=== PATIENT | female | born 1965 | race Caucasian/White ===

== ENCOUNTER 2018-09-11 15:22 | Emergency (ER) | payer MEDICAID ==
[~2018-09-11] VITALS: Ht 162.6 cm; Wt 145.1 kg
[~2018-09-11 15:22] MED LIST: LEVO0.124 PO
[2018-09-11 16:20] VITALS: BP 100/68
--- NOTE | 2018-09-11 18:30 | NUR ---
BIB DAUGHTER WITH C/O LT HEEL PAIN X 1 WK. DENIES INJURY. RECENTLY TREATED WITH UTI AT [facility]. PER DAUGHTER CAN NOT REMEMBER THE ANTIBIOTICS THAT SHE IS STILL TAKING. VSS; PATIENT POSITIONED FOR COMFORT; HOB ELEVATED; BEDRAILS UP X2; BED DOWN. ER MD MADE AWARE OF PT STATUS.
[2018-09-11] MEDS ORDERED: HYDROcodone/APAP 5/325 MG 1 TAB TAB PO ONE (18:40)
[2018-09-11 18:50] VITALS: BP 100/68
== END 2018-09-11 18:50 | disposition home or self-care (01) ==
LOC: MED 15:22
DX: S93.692A Other sprain of left foot, initial encounter (principal); M77.52 Other enthesopathy of left foot and ankle; X58.XXXA Exposure to other specified factors, initial encounter; Y93.89 Activity, other specified; Y92.89 Other specified places as the place of occurrence of the external cause; Y99.8 Other external cause status; E07.9 Disorder of thyroid, unspecified; Z79.899 Other long term (current) drug therapy
CPT/HCPCS: 99283

== ENCOUNTER 2019-03-21 18:02 | Emergency (ER) | payer MEDICAID ==
[~2019-03-21] VITALS: Ht 162.6 cm; Wt 146.6 kg
[2019-03-21 18:23] VITALS: BP 137/85
--- NOTE | 2019-03-21 18:33 | NUR ---
53/F BIB DAUGHTER .PT REPORTS DIFFICULTY BREATHING, ANXIETY, AND WEAKNESS SINCE WAKING UP THIS MORNING. RR EVEN, NON-LABORED, BREATH SOUNDS CLEAR THROUGHOUT, O2 SAT AT 96 % ON RA.MEDHX:ANXIETY, HYPOTHYROIDISM.PATIENT POSITIONED FOR COMFORT; HOB ELEVATED; BEDRAILS UP X1; BED DOWN. ER MD MADE AWARE OF PT STATUS.
[2019-03-21] MEDS ORDERED: IPRATROPIUM 0.02% 0.5 MG/2.5 ML NEBU INH ONE (18:35)
[2019-03-21] MEDS ORDERED: methylPREDNISolone SS 125 MG/2 ML VIAL IVP ONE (18:35)
[2019-03-21] MEDS ORDERED: ALBUTEROL 0.083% 2.5 MG/3 ML NEBU INH ONE (18:35)
--- NOTE | 2019-03-21 18:40 | NUR ---
Respiratory therapist at bedside for ABG and breathing treatment.
[2019-03-21 18:56] LABS: BASOPHILS # (AUTO) 0.1 K/uL (0.00-0.22); BASOPHILS % (AUTO) 0.9 % (0.0-2.0); EOSINOPHILS # (AUTO) 0.4 K/uL (0-0.4); EOSINOPHILS % (AUTO) 3.3 % (0.0-4.0); HEMOGLOBIN 14.1 g/dL (12.0-16.0); LYMPHOCYTES # (AUTO) 2.5 K/uL (2.5-16.5); LYMPHOCYTES % (AUTO) 21.2 % (20.5-51.1); MEAN CORPUSCULAR HEMOGLOBIN 29 pg (27-31); MEAN CORPUSCULAR HGB CONC 33 g/dL (33-37); MONOCYTES # (AUTO) 0.7 K/uL (0.8-1.0); MONOCYTES % (AUTO) 6.3 % (1.7-9.3); NEUTROPHILS % (AUTO) 68.3 % (42.2-75.2); PLATELET COUNT (AUTO) 316 K/uL (140-450); RED BLOOD CELL COUNT(AUTO) 4.95 MIL/uL (4.20-5.40); RED CELL DISTRIBUTION WIDTH 14.7 % (11.6-13.7); WHITE BLOOD COUNT (AUTO) 11.7 K/uL (4.8-10.8)
--- NOTE | 2019-03-21 19:07 | NUR ---
Pt report given to PIERO KNOX. Transfer of care at this time.
[2019-03-21 19:30] LABS: PROTHROMBIN TIME 9.3 secs (10.8-13.4)
[2019-03-21 19:31] LABS: ANION GAP 13.9 (8-16); CARBON DIOXIDE 29.7 mmol/L (21-32); CREATININE 0.8 mg/dL (0.6-1.3); POTASSIUM 4.6 mmol/L (3.5-5.1)
[2019-03-21 19:32] LABS: BARBITURATE, URINE NEG. ng/ml (NEG <=200); BENZODIAZEPINE, URINE NEG. ng/mL (NEG <=200); CANNABINOID, URINE NEG. ng/mL (NEG <=50); COCAINE, URINE NEG. ng/mL (NEG <=300); OPIATE, URINE NEG. ng/mL (NEG <=2000); PHENCYCLIDINE SCREEN,URINE NEG. ng/mL (NEG <=25)
[2019-03-21 19:37] LABS: ALBUMIN 3.5 g/dL (3.4-5.0); TOTAL BILIRUBIN 0.3 mg/dL (0.0-1.0)
--- NOTE | 2019-03-21 20:08 | NUR ---
PT IN BED RESTING WITH EYES OPEN. VSFelipe. RAMÍREZ AT BEDSIDE. PT STATES SHE IS STARTIGN TO FEEL NERVOUS. HAS HX OF ANXIETY. DR GRACE NOTIFIED.
--- NOTE | 2019-03-21 20:22 | NUR ---
NEW IV ESTABLISHED FOR IV CONTRAST. CT NOTIFED. CONSENT SIGNED. CONTINUE TO MONITOR.
--- NOTE | 2019-03-21 20:24 | NUR ---
PT TAKEN TO CT
--- NOTE | 2019-03-21 20:33 | NUR ---
PT RETURN FROM CT
[2019-03-21 21:49] VITALS: BP 104/61
--- NOTE | 2019-03-21 21:49 | NUR ---
DISCHARGE PAPERS GIVEN TO PT. NO RX. INSUCTED TO F/U WITH PCP AND WHEN TO RETURN TO ER. PT VERBALLIZED UNDERSTANDING OF DC IN STRUCTOINS. ALL QUESTIONS ANSWERED.
== END 2019-03-21 21:49 | disposition home or self-care (01) ==
LOC: MED 18:02
DX: F41.9 Anxiety disorder, unspecified (principal); E07.9 Disorder of thyroid, unspecified; Z90.710 Acquired absence of both cervix and uterus; Z79.899 Other long term (current) drug therapy
CPT/HCPCS: 36415; 36600; 71045; 71275; 80053; 80305; 81002; 81025; 82803; 83735; 83880; 84484; 85025; 85379; 85610; 85730; 93005; 94640; 96374; 99284; J2930; J7613; J7644; Q9967